=== PATIENT | female | born 1960 | race Caucasian/White ===

== ENCOUNTER 2017-04-26 11:18 | Emergency (ER) | payer OTHER ==
[2017-04-26 12:10] VITALS: BP 143/74
--- NOTE | 2017-04-26 12:42 | UC ---
Skin Complaint HPI - History of Current Complaint Chief Complaint: UCGeneralIllness Time Seen by Provider: 04/26/17 12:34 Stated Complaint: SWOLLEN GLANDS Hx Obtained From: Patient ?: No Onset/Duration: Gradual Onset - x 3 days with swelling around the right ear. Now redness., Worse Since - this morning with redness Timing: Constant Onset Severity: Mild Current Severity: Mild Location: Ear (Right) - anterior and inferior. Character: Swelling, Redness, Raised, Painful - to touch Aggravating: Touch Alleviating: Nothing Associated Signs & Symptoms: Positive: Diaphoresis, Tenderness - Allergy/Home Medications Allergies/Adverse Reactions: Allergies Allergy/AdvReac Type Severity Reaction Status Date / Time Sulfa Antibiotics Allergy Intermediate rash on Verified 04/26/17 12:03 stomach Home Medications: Home Medications Gabapentin CAP(*) [Neurontin 300 CAP(*)] 300 mg PO BEDTIME 04/26/17 [History Confirmed 04/26/17] Metoprolol Tartrate TAB* [Lopressor TAB*] 50 mg PO BEDTIME 04/26/17 [History Confirmed 04/26/17] Review of Systems Constitutional: Chills All Other Systems Reviewed And Are Negative: Yes PMH/Surg Hx/FS Hx/Imm Hx Cardiovascular History: Hypertension - Surgical History Surgical History: Yes Surgery Procedure, Year, and Place: low back fusion - Family History Known Family History: Negative: Cardiac Disease - Social History Occupation: Employed Full-time Lives: With Family Alcohol Use: None Substance Use Type: None Smoking Status (MU): Never Smoked Tobacco Physical Exam Triage Information Reviewed: Yes Appearance: Well-Appearing, No Pain Distress, Well-Nourished Vital Signs: Initial Vital Signs Temp 97.3 F 04/26/17 11:57 Pulse 60 04/26/17 11:57 Resp 16 04/26/17 11:57 BP 143/74 04/26/17 11:57 Pulse Ox 99 04/26/17 11:57 Vital Signs Reviewed: Yes Eyes: Positive: Conjunctiva Clear ENT: Positive: Pharynx normal, TMs normal Neck exam: Normal Respiratory Exam: Normal Cardiovascular: Positive: RRR, Murmur:Sys:Grade _?_/ - 1/ Musculoskeletal Exam: Normal Neurological Exam: Normal Psychological Exam: Normal Skin: Positive: Other - erythema with swelling as per diagram. Some tender nodes just under the ear. Course/Dx - Differential Diagnoses - Skin Complaint Differential Diagnoses: Abscess, Cellulitis, Impetigo - Diagnoses Provider Diagnoses: Cellulitis face Discharge - Discharge Plan Condition: Stable Disposition: HOME Prescriptions: Cephalexin CAP* [Keflex 500 CAP*] 500 mg PO QID #28 cap Patient Education Materials: Cellulitis (ED), Cephalexin (By mouth) Images Head: 1 - Redness, warmth, swollen and tender.
== END 2017-04-26 12:57 | disposition home or self-care (01) ==
LOC: UCCORT 11:18
DX: L03.211 Cellulitis of face (principal); I10 Essential (primary) hypertension
CPT/HCPCS: 99202; G0463